=== PATIENT | male | born 1990 | race Caucasian/White ===

== ENCOUNTER 2022-06-12 19:59 | Emergency (ER) | payer OTHER ==
[~2022-06-12] VITALS: Ht 170.2 cm; Wt 136.1 kg
[~2022-06-12 19:59] MED LIST: CEPH500 PO; HYDR1TAB94 PO
== END 2022-06-12 21:17 | disposition home or self-care (01) ==
LOC: ER 19:59
DX: S83.91XA Sprain of unspecified site of right knee, initial encounter (principal); S86.911A Strain of unspecified muscle(s) and tendon(s) at lower leg level, right leg, initial encounter; F17.200 Nicotine dependence, unspecified, uncomplicated; W01.0XXA Fall on same level from slipping, tripping and stumbling without subsequent striking against object, initial encounter
CPT/HCPCS: 73562-RT; A9270